=== PATIENT | female | born 1995 | race Caucasian/White ===

== ENCOUNTER 2019-12-04 14:54 | Emergency (ER) | payer OTHER, MEDICAID ==
[~2019-12-04] VITALS: Ht 157.5 cm; Wt 54.4 kg
[~2019-12-04 14:54] MED LIST: CELEXA 20 MG TA20 M1; FLEXERIL PO; IBUPROFEN 800800 MG PO; MULTIVITAMINS1 EAC7; NORCO 5-325 TA1 EACH PO; OMEPRAZOLE 20 M20 M1; PROAIR HFA8.5 GM; SPRINTEC1 EACH; ZANTAC 150MG T150 M1
[2019-12-04] MEDS ORDERED: SYMBICORT160 MCG/4. INH (15:12)
[2019-12-04] MEDS ORDERED: REMERON15 M2 PO (15:12)
[2019-12-04] MEDS ORDERED: ESCITALOPRA5 MG/5 ML PO (15:13)
[2019-12-04] MEDS ORDERED: LIDODERM1 EACH TRANSDERM ×2 (15:40→15:43)
[2019-12-04] MEDS ORDERED: NORCO 5-325 TA1 EAC2 PO ×2 (15:40→15:42)
[2019-12-04 15:48] VITALS: BP 132/66
== END 2019-12-04 15:49 | disposition home or self-care (01) ==
LOC: M.ERS 14:54
DX: M94.0 Chondrocostal junction syndrome [Tietze] (principal); J45.909 Unspecified asthma, uncomplicated; Z88.5 Allergy status to narcotic agent; Z88.6 Allergy status to analgesic agent; Z88.8 Allergy status to other drugs, medicaments and biological substances; Z90.49 Acquired absence of other specified parts of digestive tract